=== PATIENT | male | born 1975 | race Hispanic/Latino ===

== ENCOUNTER 2017-07-16 08:13 | Day surgery (SDC) | payer OTHER ==
[2017-07-16] MEDS ORDERED: Lactated Ringer's 1,000 ML IV ONE (08:25)
[2017-07-16 08:46] VITALS: TEMP 96.6
[2017-07-16] MEDS ORDERED: Lidocaine PF 2% (5 ml) Inj (For Cardiac Arrhy) IV ONE (08:46)
[2017-07-16] MEDS ORDERED: Propofol 10 mg/ml Inj (20 ML) ONE (08:46)
[2017-07-16 10:06] VITALS: BP 102/70; PULSE 63; RESP 13; O2SAT 100
== END 2017-07-16 10:06 | disposition home or self-care (01) ==
LOC: H.ENDO 08:13
PROVIDERS: ATTEND Internal Medicine Gastroenterology
DX: K51.20 Ulcerative (chronic) proctitis without complications (principal); K62.89 Other specified diseases of anus and rectum; K55.20 Angiodysplasia of colon without hemorrhage; K29.50 Unspecified chronic gastritis without bleeding; K51.90 Ulcerative colitis, unspecified, without complications; K31.9 Disease of stomach and duodenum, unspecified; K29.80 Duodenitis without bleeding; K92.1 Melena
CPT/HCPCS: 43239; 45380; 88305; J2001; J2704; J7120